=== PATIENT | female | born 1965 | race African-American/Black ===

== ENCOUNTER 2020-07-29 18:14 | Emergency (ER) | payer SELFPAY ==
[~2020-07-29] VITALS: Ht 162.6 cm; Wt 98.0 kg
[2020-07-29 18:19] VITALS: BP 169/98
[2020-07-29] MEDS ORDERED: IBUP-2028 MT (19:02)
[2020-07-29] MEDS ORDERED: MED4 MT (19:02)
== END 2020-07-29 19:34 | disposition home or self-care (01) ==
LOC: ER 18:14
DX: S83.92XA Sprain of unspecified site of left knee, initial encounter (principal); X58.XXXA Exposure to other specified factors, initial encounter; Y93.89 Activity, other specified; Y92.89 Other specified places as the place of occurrence of the external cause; R03.0 Elevated blood-pressure reading, without diagnosis of hypertension
CPT/HCPCS: 99281

== ENCOUNTER 2022-02-07 17:13 | Emergency (ER) | payer MEDICAID, OTHER ==
[~2022-02-07] VITALS: Ht 170.2 cm; Wt 97.5 kg
[~2022-02-07 17:13] MED LIST: IBUP-2028 MT; MED4 MT
[2022-02-07] MEDS ORDERED: ACETAMINOPHEN WITH CODEINE 300/30MG TABLET PO ONE (19:00)
[2022-02-07 19:02] VITALS: BP 151/86
[2022-02-07] MEDS: IBUPROFEN 800MG TABLET PO ONE ×2 (19:02→19:04)
[2022-02-07] MEDS ORDERED: IBUP-2028 PO (20:26)
[2022-02-07] MEDS ORDERED: T3 PO (20:26)
== END 2022-02-07 20:45 | disposition home or self-care (01) ==
LOC: ER 17:16
DX: S09.8XXA Other specified injuries of head, initial encounter (principal); M54.50 Low back pain, unspecified; I10 Essential (primary) hypertension; E78.00 Pure hypercholesterolemia, unspecified; M19.90 Unspecified osteoarthritis, unspecified site; Z98.890 Other specified postprocedural states; W22.8XXA Striking against or struck by other objects, initial encounter; Y93.89 Activity, other specified; Y92.830 Public park as the place of occurrence of the external cause; Y99.8 Other external cause status
CPT/HCPCS: 72100; 73560; 99284